=== PATIENT | female | born 1975 | race Caucasian/White ===

== ENCOUNTER 2017-12-01 16:22 | Emergency (ER) | payer MEDICAID ==
[2017-12-01] MEDS: BUPIVACAINE 0.25% (MPF) 30 ML INJ INJ (19:32)
[2017-12-01] MEDS: IBUPROFEN 800 MG TAB PO (19:51)
[2017-12-01] MEDS: CYCLOBENZAPRINE 10 MG TAB PO (19:51)
== END 2017-12-01 20:33 | disposition home or self-care (01) ==
LOC: FTE 16:22
DX: M62.838 Other muscle spasm (principal)
CPT/HCPCS: 20552; 99283-25

== ENCOUNTER 2018-07-25 22:08 | Emergency (ER) | payer MEDICAID ==
[2018-07-26] MEDS: KETOROLAC 30 MG INJ IM (03:58)
== END 2018-07-26 05:31 | disposition home or self-care (01) ==
LOC: FTE 22:08
DX: J10.1 Influenza due to other identified influenza virus with other respiratory manifestations (principal)
CPT/HCPCS: 71045; 81025; 87400; 96372; 99284-25

== ENCOUNTER 2019-01-04 21:11 | Emergency (ER) | payer MEDICAID ==
[2019-01-04] MEDS: predniSONE 20 MG TAB PO (22:10)
[2019-01-04] MEDS: DIPHENHYDRAMINE 50 MG CAP PO (22:10)
[2019-01-04] MEDS: FAMOTIDINE 20 MG TAB PO (22:10)
[2019-01-04] MEDS: FLUORESCEIN STRIP BOTH EYES (22:11)
[2019-01-04] MEDS: TETRACAINE 0.5% 4 ML OPH BOTH EYES (22:11)
== END 2019-01-05 00:20 | disposition home or self-care (01) ==
LOC: FTE 01-05 00:20
DX: L03.213 Periorbital cellulitis (principal); T49.5X5A Adverse effect of ophthalmological drugs and preparations, initial encounter
CPT/HCPCS: 99283-25; J7512